=== PATIENT | male | born 1955 | race Caucasian/White ===

== ENCOUNTER 2017-11-17 14:36 | Emergency (ER) | payer BC, OTHER ==
[~2017-11-17] VITALS: Ht 185.4 cm; Wt 106.6 kg
[2017-11-17 15:01] LABS: URINE BILIRUBIN NEGATIVE (Negative); URINE BLOOD NEGATIVE (Negative); URINE CLARITY CLEAR; URINE COLOR YELLOW; URINE GLUCOSE-RANDOM* NEGATIVE (Negative); URINE KETONES NEGATIVE (Negative); URINE LEUKOCYTES NEGATIVE (Negative); URINE NITRITE NEGATIVE (Negative); URINE PROTEIN (DIPSTICK) TRACE (Negative); URINE SPECIFIC GRAVITY >= 1.030 (1.005-1.035); URINE UROBILINOGEN 0.2 E.U./dl (0.2-1.0)
[2017-11-17] MEDS ORDERED: CIPROFLOXACIN500 M1 PO (16:16)
[2017-11-17] MEDS ORDERED: FLAGYL500 MG PO (16:16)
[2017-11-17] MEDS ORDERED: NORCO 5-325 TA1 EACH PO (16:16)
[2017-11-17 16:46] VITALS: BP 160/85
== END 2017-11-17 16:51 | disposition home or self-care (01) ==
LOC: ER 14:36
PROVIDERS: Emergency Medicine
DX: K57.92 Diverticulitis of intestine, part unspecified, without perforation or abscess without bleeding (principal); R39.11 Hesitancy of micturition; R10.2 Pelvic and perineal pain; F17.210 Nicotine dependence, cigarettes, uncomplicated

== ENCOUNTER → 2019-10-09 | Outpatient (CLI) | payer OTHER ==
[~2019-10-09] MED LIST: CIPROFLOXACIN500 M1 PO; FLAGYL500 MG PO; NORCO 5-325 TA1 EACH PO
== END ==
LOC: CAT 07:52
DX: Z13.6 Encounter for screening for cardiovascular disorders (principal); I51.0 Cardiac septal defect, acquired; E78.00 Pure hypercholesterolemia, unspecified

== ENCOUNTER → 2019-10-12 | Outpatient (CLI) | payer BC, OTHER | LOC: SJCVCIMAG 09:31 | DX: I65.23 Occlusion and stenosis of bilateral carotid arteries (principal); I36.1 Nonrheumatic tricuspid (valve) insufficiency; R93.1 Abnormal findings on diagnostic imaging of heart and coronary circulation; E78.5 Hyperlipidemia, unspecified; R09.89 Other specified symptoms and signs involving the circulatory and respiratory systems; F17.201 Nicotine dependence, unspecified, in remission ==

== ENCOUNTER 2021-01-14 09:48 | Emergency (ER) | payer BC, OTHER ==
[~2021-01-14] VITALS: Ht 182.9 cm; Wt 99.8 kg
[2021-01-14 10:05] LABS: URINE BLOOD NEGATIVE (Negative); URINE COLOR YELLOW; URINE GLUCOSE-RANDOM* TRACE (Negative); URINE KETONES TRACE (Negative); URINE LEUKOCYTES-REFLEX NEGATIVE (Negative); URINE NITRITE-REFLEX NEGATIVE (Negative); URINE PROTEIN (DIPSTICK) 2+ (Negative); URINE SPECIFIC GRAVITY 1.025 (1.005-1.035)
[2021-01-14 10:08] LABS: ABSOLUTE NEUTROPHILS 5.1 thou/uL (1.4-8.2); BASOPHILS 0.6 % (0.0-2.0); EOSINOPHILS 0.7 % (0.0-3.0); HEMATOCRIT 44.8 % (42.0-52.0); HEMOGLOBIN 14.9 gm/dL (14.0-18.0); LYMPHOCYTES 15.7 % (24.0-44.0); MCH 32.1 pg (26.0-34.0); MCHC 33.2 g/dL (28.0-37.0); MCV 96.6 fL (80.0-100.0); MONOCYTES 10.9 % (1.0-8.0); PLATELET COUNT 262 thou/uL (150-400); POLYS 72.1 % (36.0-66.0); RBC 4.64 mil/uL (4.50-6.00); WBC 7.1 thou/uL (4.0-11.0)
[2021-01-14 10:14] LABS: URINE CLARITY SL HAZY
[2021-01-14 10:15] LABS: ICTOTEST (BILI CONFIRMATORY) Negative (Negative); URINE BILIRUBIN NEGATIVE (Negative)
[2021-01-14 10:26] LABS: MUCUS >6 Heavy strn/LPF (None Seen); SQUAMOUS 0-3 Few /LPF (0-3)
[2021-01-14 10:26] LABS: ANION GAP 9 mmol/L (7-16); BUN 22 mg/dL (7-18); CALCIUM 9.5 mg/dL (8.5-10.1); CHLORIDE 104 mmol/L (98-107); CO2 26 mmol/L (21-32); CREATININE 1.5 mg/dL (0.7-1.3); GLUCOSE 117 mg/dL (74-106); POTASSIUM 3.8 mmol/L (3.5-5.1); SODIUM 139 mmol/L (136-145)
[2021-01-14 10:27] LABS: HYALINE CASTS 4-10 Moderate /LPF (None Seen)
[2021-01-14 10:28] LABS: BACTERIA-REFLEX 1-9 Few /HPF (None Seen); CRYSTALS None Seen /LPF (None Seen); FINE GRANULAR CASTS 0-3 Few /LPF (None Seen); URINE WBC-REFLEX 0-5 Rare /HPF (0-5)
[2021-01-14 10:29] LABS: URINE RBC None Seen /HPF (NONE SEEN)
[2021-01-14 10:31] LABS: ALBUMIN 4.1 g/dL (3.4-5.0); SGOT 20 U/L (15-37); SGPT 26 U/L (16-63); TOTAL BILIRUBIN 1.1 mg/dL (0.2-1.0); TOTAL PROTEIN 7.2 g/dL (6.4-8.2); TROPONIN-I <0.06 ng/mL (<0.06)
[2021-01-14 11:53] VITALS: BP 138/81
--- NOTE | 2021-01-15 08:23 | EKG ---
[address] [address] ELECTROCARDIOGRAM REPORT Name: BALJEET BLUM Room #: DEP HARSHIL Lemus#: [id number] Admission: 01/14/21 Attend Phys: Discharge: 01/14/21 Date of : 51 Report #: [id number] [facility] ED Test Date: 2021-01-14 Test Time: 09:54:00 Pat Name: BALJEET BLUM Department: Room: Gender: Population Health Coach: : 1955 Requested By: Ej Bailey Order Number: [id number] MD: Olman Kirk Measurements Intervals [place] Rate: 72 P: 77 DC: 187 QRS: 74 QRSD: 105 T: 41 QT: 380 QTc: 416 Interpretive Statements Sinus rhythm No previous ECG available for comparison Electronically Signed On 01-15-2021 7:00:55 CDT by Olman Kirk [email or web address] <ELECTRONICALLY SIGNED> By: Olman Kirk MD, [facility] 01/15/21 [id number] Olman Kirk MD, FACC /EPI
== END 2021-01-14 11:53 | disposition home or self-care (01) ==
LOC: ER 09:48
PROVIDERS: Emergency Medicine
DX: E86.0 Dehydration (principal); R55 Syncope and collapse; F17.210 Nicotine dependence, cigarettes, uncomplicated; Z79.899 Other long term (current) drug therapy